=== PATIENT | female | born 1990 | race African-American/Black ===

== ENCOUNTER 2018-03-13 16:07 | Emergency (ER) | payer OTHER ==
[~2018-03-13] VITALS: Ht 177.8 cm; Wt 117.5 kg
--- NOTE | 2018-03-13 16:30 | NUR ---
18G R AC. IV FLUIDS INFUSING. MEDICATIONS ADMINISTERED ORDERED. PT RELAXED, CHILDREN AT BEDSIDE. WILL CONT TO MONITOR.
[2018-03-13 17:30] LABS: BASOPHILS # (AUTO) 0.1 /CMM (0.0-0.2); BASOPHILS % (AUTO) 0.9 % (0.0-2.0); EOSINOPHILS % (AUTO) 1.9 % (0.0-6.0); HEMATOCRIT 41 % (33-45); HEMOGLOBIN 13.6 g/dL (11.5-14.8); LYMPHOCYTES # (AUTO) 2.8 /CMM (0.8-4.8); LYMPHOCYTES % (AUTO) 40.4 % (20.0-44.0); MEAN CORPUSCULAR HGB CONC 33 g/dl (31.0-36.0); MEAN CORPUSCULAR VOLUME 92 fL (82-100); MONOCYTES # (AUTO) 0.4 /CMM (0.1-1.30); MONOCYTES % (AUTO) 5.4 % (2.0-12.0); NEUTROPHILS # (AUTO) 3.5 /CMM (1.8-8.9); NEUTROPHILS % (AUTO) 51.4 % (43.0-81.0); PLATELET COUNT (AUTO) 342 /CMM (150-450); RDW COEFFICIENT OF VARIATION 12.3 (11.5-15.0); RED BLOOD CELL COUNT(AUTO) 4.46 MIL/uL (4.0-5.2); WHITE BLOOD COUNT (AUTO) 6.9 K/uL (4.3-11.0)
[2018-03-13] MEDS ORDERED: METOCLOPRAMIDE HCL 10 MG/2 ML VIAL IV ONE (17:30)
[2018-03-13] MEDS ORDERED: KETOROLAC TROMETHAMINE INJ 30 MG/ML VIAL IV ONE (17:30)
[2018-03-13] MEDS ORDERED: diphenhydrAMINE HCL 50 MG/ML VIAL IV ONE (17:30)
[2018-03-13] MEDS ORDERED: IV NS 0.9% 1,000 ML BAG IV ONE (17:30)
[2018-03-13 17:41] LABS: CALCIUM, SERUM 8.9 mg/dL (8.5-10.1); CREATININE 0.9 mg/dL (0.6-1.3)
[2018-03-13] MEDS ORDERED: KETOROLAC TROMETHAMINE INJ 30 MG/ML VIAL ONE (18:48)
[2018-03-13] MEDS ORDERED: METOCLOPRAMIDE HCL 10 MG/2 ML VIAL ONE (18:48)
[2018-03-13] MEDS ORDERED: diphenhydrAMINE HCL ELIX 25 MG/10 ML UDC ONE (18:49)
--- NOTE | 2018-03-13 19:31 | NUR ---
TOOK CARE OVER FROM DAY SHIFT. WILL CONTINUE TO MONITOR
[2018-03-13 19:42] VITALS: BP 131/86
== END 2018-03-13 19:43 | disposition home or self-care (01) ==
LOC: ER 16:15
DX: R51 Headache (principal)
CPT/HCPCS: 36415; 70450-TC; 80048-TC; 84703-TC; 85025-TC; A4606; J1885; J2765; J7030; Q0163; Z7610